=== PATIENT | male | born 1975 | race Caucasian/White ===

== ENCOUNTER 2018-06-25 22:47 | Emergency (ER) | payer OTHER | END 2018-06-25 23:17 | disposition home or self-care (01) | LOC: ER 22:47 | DX: F32.9 Major depressive disorder, single episode, unspecified (principal); Z53.21 Procedure and treatment not carried out due to patient leaving prior to being seen by health care provider ==

== ENCOUNTER 2018-06-26 00:25 | Emergency (ER) | payer OTHER ==
[~2018-06-26] VITALS: Ht 175.3 cm; Wt 61.2 kg
[2018-06-26 00:31] VITALS: BP 146/87
== END 2018-06-26 03:45 | disposition home or self-care (01) ==
LOC: ER 00:25
DX: F15.150 Other stimulant abuse with stimulant-induced psychotic disorder with delusions (principal); F17.210 Nicotine dependence, cigarettes, uncomplicated